=== PATIENT | male | born 1995 | race Asian ===

== ENCOUNTER 2025-03-08 23:26 | Emergency (ER) | payer OTHER ==
[~2025-03-08] VITALS: Ht 167.6 cm; Wt 59.0 kg
[2025-03-08 23:46] VITALS: O2SAT 100
[2025-03-09 01:07] VITALS: BP 120/79; PULSE 61; RESP 16; TEMP 36.9; O2SAT 99
== END 2025-03-09 01:19 | disposition home or self-care (01) ==
LOC: ER 03-09 00:21
DX: Z00.00 Encounter for general adult medical examination without abnormal findings (principal); G43.909 Migraine, unspecified, not intractable, without status migrainosus; G90.A Postural orthostatic tachycardia syndrome [POTS]
CPT/HCPCS: 99282